=== PATIENT | female | born 1985 | race Hispanic/Latino ===

== ENCOUNTER 2021-10-31 17:02 | Emergency (ER) | payer SELFPAY ==
[2021-10-31] MEDS ORDERED: Tetracaine 0.5% PF 4 ML BOT ONE (17:13)
[2021-10-31] MEDS ORDERED: Fluorescein Opthalmic Strip ONE (17:13)
[2021-10-31] MEDS ORDERED: Gentamicin Ophth Soln 0.3% 5 ml Bottle ONE (17:25)
== END 2021-10-31 17:48 | disposition home or self-care (01) ==
LOC: NAV ERS 17:02
DX: S05.01XA Injury of conjunctiva and corneal abrasion without foreign body, right eye, initial encounter (principal)
CPT/HCPCS: 99283

== ENCOUNTER 2022-08-03 19:17 | Emergency (ER) | payer SELFPAY ==
[2022-08-03] MEDS ORDERED: Lidocaine 1% (PF) 30 ML VIAL ONE (19:25)
[2022-08-03] MEDS ORDERED: Cephalexin 250 MG CAP ONE (20:15)
[2022-08-03] MEDS ORDERED: Bacitracin 1 PK ONE ×2 (20:17→20:25)
== END 2022-08-03 20:30 | disposition home or self-care (01) ==
LOC: NAV ERS 19:17
DX: S61.411A Laceration without foreign body of right hand, initial encounter (principal); X58.XXXA Exposure to other specified factors, initial encounter
CPT/HCPCS: 12002; J2001

== ENCOUNTER 2024-03-03 09:12 | Emergency (ER) | payer BC, SELFPAY ==
[2024-03-03] MEDS ORDERED: Ondansetron PF 4 MG/2 ML Vial ONE (10:18)
[2024-03-03] MEDS ORDERED: Lidocaine 2% Viscous 100 ML BOTTLE ONE (10:19)
[2024-03-03] MEDS ORDERED: Mag-Al Plus 1200/1200/120 MG (30 mL) UDCUP ONE (10:19)
[2024-03-03] MEDS ORDERED: Famotidine/PF 20 mg/2ml Vial ONE (10:19)
[2024-03-03] MEDS ORDERED: Sodium Chloride 0.9% 1,000 ML ONE (10:19)
[2024-03-03 10:21] LABS: #Basophils 0.1 thou/uL (0.0-0.2); #Eosinphils 0.1 thou/uL (0.0-0.7); #Monocytes 0.4 thou/uL (0.11-0.59); #Neutrophils 5.9 thou/uL (1.40-6.50); %Basophils 0.8 % (0.0-1.0); %Monocytes 4.9 % (0.0-10.0); %Neutrophils 69.3 % (42.0-75.0); Hematocrit 42.4 % (36.0-47.0); Mean Corpuscular HGB CONC 30.7 g/dL (32.0-36.0); Mean Corpuscular Hemoglobin 27.5 pg (27.0-31.0); Mean Corpuscular Volume 89.4 fl (78.0-98.0); Mean Platelet Volume 7.1 fL (7.4-10.4); Platelet Count 287 10x3/uL (130-400); RBC Distribution Width 12.7 % (11.5-14.5); Red Blood Cell (RBC) Count 4.74 mill/uL (4.20-5.40); White Blood Cell (WBC) Count 8.5 10x3/uL (4.8-10.8)
[2024-03-03 10:23] LABS: Bilirubin Negative (Negative); Blood, Urine Small (Negative); Clarity Clear (Clear); Glucose, Urine (Dipstick) Negative (Negative); Ketone, Urine Negative (Negative); Leukocyte Negative (Negative); Nitrite Negative (Negative); Protein, Urine (Dipstick) Negative (Neg-Trace); Specific Gravity, Urine 1.015 (1.005-1.030); Urobilinogen 0.2 mg/dL (Less than 2)
[2024-03-03 10:36] LABS: ALT (SGPT) 29 U/L (8-55); AST (SGOT) 24 U/L (5-34); Albumin 4.3 g/dL (3.5-5.0); Alkaline Phosphatase 88 U/L (40-110); Anion Gap 16 mmol/L (10-20); BUN (Urea Nitrogen) 12 mg/dL (7.0-18.7); Bilirubin, Total 0.5 mg/dL (0.2-1.2); Calc. Creatinine Clearance 0 mL/min (70-130); Calcium 9.7 mg/dL (7.8-10.44); Carbon Dioxide 22 mmol/L (22-29); Chloride 104 mmol/L (98-107); Estimated GFR 107; Globulin 4.3 g/dL (2.4-3.5); Glucose 90 mg/dL (70-105); Lipase 12 U/L (8-78); Protein, Total 8.6 g/dL (6.0-8.3); Sodium 138 mmol/L (136-145)
[2024-03-03 10:45] LABS: Bacteria/HPF None Seen HPF (None Seen); CAUTI Indications for Culture Pelvic or flank pain; RBC/HPF 0-3 HPF (0-3); Squamous Epithelial 0-3 HPF (0-3); WBC/HPF None Seen HPF (0-3)
[2024-03-03 10:46] LABS: Urine Culture Reflex No No
[2024-03-03 10:47] LABS: BHCG - Serum Negative (NEGATIVE); Pregs Control Bar Appear? YES (CONTROL BAR)
== END 2024-03-03 11:05 | disposition home or self-care (01) ==
LOC: NAV ERS 09:12
DX: K29.70 Gastritis, unspecified, without bleeding (principal)
CPT/HCPCS: 80053; 81001; 83690; 84703; 85025; 96361; 96374; 96375; J2405; J7050; S0028